=== PATIENT | female | born 1965 | race American Indian/Alaskan Native ===

== ENCOUNTER 2017-11-02 18:53 | Emergency (ER) | payer OTHER ==
[2017-11-02 19:19] VITALS: TEMP 98.7; O2SAT 100
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
[2017-11-02 20:28] LABS: PH,URINE 6.5 (4.7-8.0); URINE BILIRUBIN NEGATIVE (NEGATIVE); URINE BLOOD NEGATIVE (NEGATIVE); URINE GLUCOSE (UA) NEGATIVE (NEGATIVE); URINE LEUKOCYTE ESTERASE NEGATIVE Leu/uL (NEGATIVE); URINE PROTEIN NEGATIVE mg/dL (<30 mg/dL); URINE UROBILINOGEN 0.2 E.U./dL (<1 E.U./dL)
[2017-11-02 20:35] LABS: URINE APPEARANCE CLEAR (CLEAR); URINE COLOR YELLOW (YELLOW)
[2017-11-02 21:51] VITALS: BP 130/73; PULSE 86; RESP 18
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
== END 2017-11-02 21:20 | disposition home or self-care (01) ==
LOC: ED 18:53 → MERGE 18:53 → ED 21:20
DX: M54.5 Low back pain (principal); E78.5 Hyperlipidemia, unspecified; V49.9XXA Car occupant (driver) (passenger) injured in unspecified traffic accident, initial encounter
CPT/HCPCS: 72110; 81003; 96372; 99284; J1885

== ENCOUNTER 2018-02-22 11:46 | Emergency (ER) | payer OTHER ==
[2018-02-22 11:58] VITALS: RESP 18
--- NOTE | 2018-02-22 13:01 | ED PDOC ---
Arrival/HPI - General Historian: Patient <Matthew Carrion - Last Filed: 02/22/18 17:47> <Juan Jose Jackson DO - Last Filed: 02/22/18 21:41> - General Chief Complaint: Eye Problem Time Seen by Provider: 02/22/18 12:02 - History of Present Illness Narrative History of Present Illness (Text): 02/22/18 12:44 52 year old female presenting to the ED with eye pain secondary to lost contact lens. Patient states last night she was trying to take her contacts off and was unable to take the right contact lens out. She decided to leave it and go to sleep. When she woke up the right eye was painful, swollen, red and she noticed some blurry vision as well. She no longer feels a lens in the eye but endorses soreness around the eye. Denies any fever, chills, shortness of breath, eye drainage, headache, dizziness, chest pain, palpitations, or urinary symptoms. ( Matthew Carrion) Past Medical History - Provider Review Nursing Documentation Reviewed: Yes - Infectious Disease Hx of Infectious Diseases: None - Reproductive Menopause: No - Cardiac Hx Cardiac Disorders: No - Pulmonary Hx Respiratory Disorders: No - Neurological Hx Neurological Disorder: No - HEENT Hx HEENT Disorder: No - Renal Hx Renal Disorder: No - Endocrine/Metabolic Hx Endocrine Disorders: No - Hematological/Oncological Hx Blood Disorders: No - Integumentary Hx Dermatological Disorder: No - Musculoskeletal/Rheumatological Hx Musculoskeletal Disorders: Yes Hx Arthritis: Yes (back) - Gastrointestinal Hx Gastrointestinal Disorders: No - Genitourinary/Gynecological Hx Genitourinary Disorders: No - Psychiatric Hx Psychophysiologic Disorder: No Hx Substance Use: No - Anesthesia Hx Anesthesia: No <Matthew Carrion - Last Filed: 02/22/18 17:47> Family/Social History - Physician Review Nursing Documentation Reviewed: Yes Family/Social History: Unknown Family HX Smoking Status: Never Smoked Hx Alcohol Use: No Hx Substance Use: No <Matthew Carrion - Last Filed: 02/22/18 17:47> Allergies/Home Meds <Matthew Carrion - Last Filed: 02/22/18 17:47> <Juan Jose Jackson DO - Last Filed: 02/22/18 21:41> Allergies/Adverse Reactions: Allergies No Known Allergies Allergy (Verified 11/02/17 19:19) Home Medications: Home Meds Medication Instructions Recorded Confirmed Multivitamin/Iron/Folic Acid 1 tab PO DAILY 02/22/18 02/22/18 [Centrum Complete Multivit Tab] Rosuvastatin Calcium [Crestor] 20 mg PO HS 02/22/18 02/22/18 Review of Systems - Review of Systems Constitutional: absent: Fevers Eyes: Eye Pain. absent: Vision Changes, Photophobia ENT: absent: Hearing Changes, Tinnitus Respiratory: absent: SOB, Cough Cardiovascular: absent: Chest Pain, Palpitations Gastrointestinal: absent: Abdominal Pain, Nausea, Vomiting Genitourinary Female: absent: Dysuria, Frequency Musculoskeletal: absent: Arthralgias, Back Pain Skin: absent: Rash, Pruritis Neurological: absent: Headache, Dizziness <Matthew Carrion - Last Filed: 02/22/18 17:47> Physical Exam Vital Signs Reviewed: Yes Temperature: Afebrile Blood Pressure: Normal Pulse: Regular Respiratory Rate: Normal Appearance: Positive for: Well-Appearing, Non-Toxic Pain Distress: None Mental Status: Positive for: Alert and Oriented X 3 - Systems Exam Head: Present: Atraumatic, Normocephalic Pupils: Present: PERRL Extroacular Muscles: Present: EOMI Conjunctiva: Present: Injected, Other (swollen right eyelid) Mouth: Present: Moist Mucous Membranes Respiratory/Chest: Present: Clear to Auscultation, Good Air Exchange. No: Respiratory Distress, Accessory Muscle Use Cardiovascular: Present: Regular Rate and Rhythm, Normal S1, S2. No: Murmurs Abdomen: No: Tenderness, Distention, Peritoneal Signs Skin: Present: Warm, Dry, Normal Color. No: Rashes Psychiatric: Present: Alert, Oriented x 3 <Matthew Carrion - Last Filed: 02/22/18 17:47> Vital Signs Temp Pulse Resp BP Pulse Ox 02/22/18 13:51 97.8 F 76 18 127/79 99 02/22/18 11:50 97.9 F 77 18 135/84 100 Medical Decision Making <Matthew Carrion - Last Filed: 02/22/18 17:47> <Juan Jose Jackson DO - Last Filed: 02/22/18 21:41> ED Course and Treatment: 02/22/18 13:37 52F presents to the ED with right eye pain. States there may be a contact lens stuck since last night. Eye was inspected. No contact was visible. Flushed right eye with normal saline. Patient states blurry vision and pain have improved. Patient will follow up with insole stiffener. Avoid contact lens for the next few weeks. Antibiotics provided, patient to use as instructed. If symptoms worsen, patient encourage to return to the ER. Patient verbalized understanding and agreement of plan. Case reviewed and discussed with attending provider. (Matthew Carrion) Patient is a 52 year old female with no significant past medical history who presents to the Emergency room with eye pain secondary to lost contact lense. Swollen right eyelid and injected conjunctiva as stated in physical examination. Patient Seen With Resident: In agreement with resident note. Patient was seen and evaluated with resident, came up with plan and treatment together. (Juan Jose Jackson DO) - PA / ANDROID PROGRAMMER / Resident Statement GUERDA has reviewed & agrees with the documentation as recorded. GUERDA has examined the patient and agrees with the treatment plan. <Juan Jose Jackson DO - Last Filed: 02/22/18 21:41> Disposition/Present on Arrival - Present on Arrival Any Indicators Present on Arrival: No History of DVT/PE: No History of Uncontrolled Diabetes: No Urinary Catheter: No History of Decub. Ulcer: No History Surgical Site Infection Following: None - Disposition Have Diagnosis and Disposition been Completed?: Yes Disposition Time: 13:20 Patient Plan: Discharge <Matthew Carrion - Last Filed: 02/22/18 17:47> <Juan Jose Jackson DO - Last Filed: 02/22/18 21:41> - Disposition Diagnosis: Pain, eye, right Disposition: HOME/ ROUTINE Condition: IMPROVED Discharge Instructions (ExitCare): Foreign Body in Eye (DC) Additional Instructions: Please follow up with your opthamologist ([facility]) within the next 3-5 days. Please avoid contact lens for the next 2 weeks. Antibiotics for the eye have been provided please take as instructed. If symptoms worsen, such as eye discharge, change or loss in vision, please return to the ED. Prescriptions: Polymyxin/Trimethoprim Sulfate [Polytrim Ophth Soln] 2 drop OD Q6 #1 bottle Referrals: [facility], [Primary Care Provider] - Follow up with primary Forms: [employer] (Mongolian)
[2018-02-22 13:53] VITALS: BP 127/79; PULSE 76; TEMP 97.8; O2SAT 99
== END 2018-02-22 13:53 | disposition home or self-care (01) ==
LOC: ED 11:46
DX: H57.11 Ocular pain, right eye (principal)